=== PATIENT | female | born 1945 | race Hispanic/Latino ===

== ENCOUNTER → 2018-12-09 | Outpatient (CLI) | payer OTHER, MEDICARE ==
[~2018-12-09] MED LIST: ALPR-409 PO; LEVO75TA10 PO; MECL-129 PO; NAPR-1023 PO; OMEP40CA13 PO; SIMV-43 PO; TRAM50TA4 PO; TYL3 PO
== END | disposition home or self-care (01) ==
LOC: RAH 10:04
PROVIDERS: ATTEND Internal Medicine Gastroenterology
DX: K70.30 Alcoholic cirrhosis of liver without ascites (principal); N28.1 Cyst of kidney, acquired; Z90.49 Acquired absence of other specified parts of digestive tract
CPT/HCPCS: 76700

== ENCOUNTER → 2019-05-13 | Outpatient (CLI) | payer OTHER, MEDICARE ==
[~2019-05-13] MED LIST changes: +ALBUMIN (HUMAN) 25% 200 ML IV ONE
[2019-05-13 10:45] LABS: INR 1.59 (0.85-1.15); PARTIAL THROMBOPLASTIN TIME 43.3 SEC (26.3-35.5); PROTHROMBIN TIME 16.9 SEC (9.6-11.6)
--- NOTE | 2019-05-13 11:10 | NUR ---
U/S GD PARACENTESIS PROCEDURE PERFORMED BY DR. BRITTON. PUNCTURE SITE RIGHT UPPER QUADRANT OF ABDOMEN AND PATIENT TOLERATED PROCEDURE WELL. TOTAL REMOVED 4.4 LITERS OF CLOUDY YELLOW FLUID. END OF PROCEDURE AT 1140. CATHETER REMOVED AND DRESSING APPLIED. NO BLEEDING NOTED. ALBUMIN 25% 25 GRAMS GIVEN DURING PROCEDURE PER [facility]. RIGHT ANTECUBITAL PIV DC'D, BANDAID APPLIED, DRESSING DRY AND INTACT. DISCHARGE INSTRUCTIONS GIVEN TO PATIENT. PATIENT VERBALIZED UNDERSTANDING. PT DISCHARGED VIA AMBULATORY W/WALKER, STABLE, AAO X3 WITH NO C/O PAIN @ 1210. SPECIMEN SENT TO LAB.
[2019-05-13 12:56] LABS: SPECIMENTYPE,BODY FLUID ASCITES
[2019-05-13 12:57] LABS: APPEARANCE BODY FLUID CLEAR (CLEAR); BODY FLUID RBC 198 /cu. mm.; BODY FLUID WBC 162 /cu. mm.; COLOR,BODY FLUID YELLOW (LT YELLOW); TOTAL VOLUME,BODY FLUID 4400 mL
[2019-05-13 13:16] LABS: BF LYMPHOCYTE 27 %; BF MESOTHELIAL 66 %; BF MONOCYTE 6 %
== END ==
LOC: RAH 09:54
PROVIDERS: ATTEND Family Medicine
DX: R18.8 Other ascites (principal); K74.60 Unspecified cirrhosis of liver
CPT/HCPCS: 36415; 49083; 85610; 85730; 87071; 87205; 89051; A4215; P9046; 96365

== ENCOUNTER 2019-09-19 16:49 | Emergency (ER) | payer OTHER, MEDICARE ==
[~2019-09-19 16:49] MED LIST changes: -ALBUMIN (HUMAN) 25% 200 ML IV ONE
[2019-09-19] MEDS ORDERED: ASPIRIN 325 MG TABLET ONE (17:31)
[2019-09-19 17:36] LABS: BASOPHILS % (AUTO) 0.1 % (0.0-5.0); HEMATOCRIT 36.3 % (36-48); LYMPHOCYTES % (AUTO) 12.4 % (21.0-51.0); MEAN CORPUSCULAR HEMOGLOBIN 27.9 pg (27.0-33.0); MEAN CORPUSCULAR VOLUME 87.3 fL (79-99); MONOCYTES % (AUTO) 10.5 % (3.0-13.0); NEUTROPHILS % (AUTO) 76.5 % (40.0-77.0); PLATELET COUNT (AUTO) 86 K/uL (130-400); RED BLOOD CELL COUNT(AUTO) 4.16 MIL/uL (4.00-5.50); RED CELL DISTRIBUTION WIDTH 15.8 % (11.0-15.5); WHITE BLOOD COUNT (AUTO) 8.5 K/uL (4.8-10.8)
[2019-09-19 17:54] LABS: B-TYPE NATRIURETIC PEPTIDE 19 pg/mL (0-100)
[2019-09-19 17:58] LABS: CREATININE 1.3 mg/dL (0.5-1.5)
[2019-09-19 18:00] LABS: INR 1.26 (0.85-1.15); PARTIAL THROMBOPLASTIN TIME 33.6 SEC (26.3-35.5); PROTHROMBIN TIME 13.5 SEC (9.6-11.6)
[2019-09-19 18:02] LABS: ALBUMIN 2.6 g/dL (3.5-5.0); BILIRUBIN,TOTAL 1.7 mg/dL (0.2-1.0); TOTAL PROTEIN, SERUM 6.9 g/dL (6.0-8.3)
== END 2019-09-19 21:18 | disposition home or self-care (01) ==
LOC: EDH 16:49
DX: R07.89 Other chest pain (principal)
CPT/HCPCS: 36415; 71045; 80053; 82550; 83880; 84484; 85025; 85610; 85730; 93005

== ENCOUNTER → 2020-05-10 | Outpatient (CLI) | payer OTHER, MEDICARE ==
[~2020-05-10] MED LIST changes: +DICL1KIT20 TP; +DICY10CA13 PO; +LEVO50TA11 PO; +LEVO750T46 PO; -LEVO75TA10 PO; -NAPR-1023 PO; -TYL3 PO
== END | disposition home or self-care (01) ==
LOC: RAH 08:45
PROVIDERS: ATTEND Internal Medicine Gastroenterology
DX: K70.30 Alcoholic cirrhosis of liver without ascites (principal); N28.1 Cyst of kidney, acquired; R16.1 Splenomegaly, not elsewhere classified; Z90.49 Acquired absence of other specified parts of digestive tract
CPT/HCPCS: 76700; 93975

== ENCOUNTER → 2020-05-31 | Outpatient (CLI) | payer OTHER, MEDICARE ==
[~2020-05-31] MED LIST changes: +IOHEXOL-350 75 ML VIAL IV ONE
== END | disposition home or self-care (01) ==
LOC: RAH 08:36
PROVIDERS: ATTEND Internal Medicine Gastroenterology
DX: K74.60 Unspecified cirrhosis of liver (principal); R16.1 Splenomegaly, not elsewhere classified; R93.2 Abnormal findings on diagnostic imaging of liver and biliary tract; R77.2 Abnormality of alphafetoprotein; R18.8 Other ascites
CPT/HCPCS: 74170; Q9967

== ENCOUNTER 2020-11-06 08:51 | Day surgery (SDC) | payer OTHER, MEDICARE ==
[2020-11-06] VITALS (9 sets, daily range): BP systolic 100–118; BP diastolic 48–60
[~2020-11-06 08:51] MED LIST changes: -IOHEXOL-350 75 ML VIAL IV ONE; -OMEP40CA13 PO; +OMEP40CA21 PO
[2020-11-06 09:26] LABS: HEMATOCRIT 34.8 % (36-48); LYMPHOCYTES % (AUTO) 23.7 % (21.0-51.0); MEAN CORPUSCULAR HEMOGLOBIN 32.7 pg (27.0-33.0); MEAN CORPUSCULAR HGB CONC 32.8 g/dL (32.0-36.0); MEAN CORPUSCULAR VOLUME 99.7 fL (79-99); MONOCYTES % (AUTO) 12.7 % (3.0-13.0); NEUTROPHILS % (AUTO) 62.9 % (40.0-77.0); PLATELET COUNT (AUTO) 84 K/uL (130-400); RED BLOOD CELL COUNT(AUTO) 3.49 MIL/uL (4.00-5.50); RED CELL DISTRIBUTION WIDTH 15.9 % (11.0-15.5); WHITE BLOOD COUNT (AUTO) 2.9 K/uL (4.8-10.8)
[2020-11-06 09:39] LABS: INR 1.49 (0.85-1.15); PROTHROMBIN TIME 15.7 SEC (9.6-11.6)
[2020-11-06 09:40] LABS: PARTIAL THROMBOPLASTIN TIME 39.5 SEC (26.3-35.5)
[2020-11-06 09:58] LABS: LYMPHOCYTES % (MANUAL) 17 % (22-44); MAN.DIFF COMMENT-IMPRESSION MANUAL DIFFERENTIAL; MONOCYTES % (MANUAL) 8 % (2-9); SEGMENTED NEUTROPHILS % 75 % (40-70)
[2020-11-06 10:00] LABS: PLATELET MORPHOLOGY COMMENT DECREASED
[2020-11-06] MEDS ORDERED: 0.9%NACL 1000ML 1,000 ML IV ONE (10:39)
[2020-11-06] MEDS ORDERED: FENTANYL CITRATE PF 50 MCG/1 ML 2ML VIAL ONE (10:57)
[2020-11-06] MEDS ORDERED: MIDAZOLAM HCL 1 MG/ML 2ML VIAL ONE (10:57)
== END 2020-11-06 16:00 | disposition home or self-care (01) ==
LOC: DAH 08:51 → EDSTATUS 09:00 → DAH 16:00
PROVIDERS: ATTEND Internal Medicine Medical Oncology
DX: C22.0 Liver cell carcinoma (principal); Z20.822 Contact with and (suspected) exposure to COVID-19; K74.60 Unspecified cirrhosis of liver; D69.6 Thrombocytopenia, unspecified; R53.83 Other fatigue; Z79.01 Long term (current) use of anticoagulants
CPT/HCPCS: 36415; 47000; 76942; 85025; 85610; 85730; 88307; 88341; 88342; C2615; J2250; J3010; J7030; 99152; 99153

== ENCOUNTER 2020-11-19 17:48 | Emergency (ER) | payer OTHER, MEDICARE ==
[~2020-11-19] VITALS: Ht 157.5 cm; Wt 56.2 kg
[2020-11-19 18:36] LABS: BASOPHILS % (AUTO) 0.2 % (0.0-5.0); HEMATOCRIT 32.8 % (36-48); LYMPHOCYTES % (AUTO) 18.9 % (21.0-51.0); MEAN CORPUSCULAR HEMOGLOBIN 32.6 pg (27.0-33.0); MEAN CORPUSCULAR HGB CONC 32.9 g/dL (32.0-36.0); MEAN CORPUSCULAR VOLUME 99.1 fL (79-99); MONOCYTES % (AUTO) 12.4 % (3.0-13.0); NEUTROPHILS % (AUTO) 67.8 % (40.0-77.0); PLATELET COUNT (AUTO) 78 K/uL (130-400); RED BLOOD CELL COUNT(AUTO) 3.31 MIL/uL (4.00-5.50); RED CELL DISTRIBUTION WIDTH 16.1 % (11.0-15.5); WHITE BLOOD COUNT (AUTO) 4.3 K/uL (4.8-10.8)
[2020-11-19 18:37] LABS: APPEARANCE,URINE SL CLOUDY (CLEAR); BILIRUBIN,URINE MODERATE (NEGATIVE); COLOR,URINE ORANGE (YELLOW); GLUCOSE, URINE (UA) NEGATIVE (NEGATIVE); KETONES,URINE 5 mg/dL (NEGATIVE); LEUKOCYTE ESTERASE ,URINE NEGATIVE (NEGATIVE); NITRATE,URINE POSITIVE (NEGATIVE); OCCULT BLOOD,URINE NEGATIVE (NEGATIVE); PROTEIN,URINE NEGATIVE (NEGATIVE)
[2020-11-19 18:48] LABS: CREATININE 1.2 mg/dL (0.5-1.5); POTASSIUM 3.2 mmol/L (3.5-5.1)
[2020-11-19 18:51] LABS: ALBUMIN 2.2 g/dL (3.5-5.0); BILIRUBIN,TOTAL 5.4 mg/dL (0.2-1.0); TOTAL PROTEIN, SERUM 6.5 g/dL (6.0-8.3)
[2020-11-19 19:02] LABS: BACTERIA,URINE Few /HPF (None Seen); RBC,URINE 0-1 /HPF (0-1); SQUAMOUS EPITHELIAL CELL,UR Moderate /HPF (0-2)
[2020-11-19] MEDS ORDERED: CEFTRIAXONE 1G VIAL IVP STA (20:30)
[2020-11-19] MEDS ORDERED: CIPR-278 PO (20:44)
[2020-11-19 20:52] VITALS: BP 130/62
== END 2020-11-19 21:41 | disposition home or self-care (01) ==
LOC: EDH 17:48
DX: N39.0 Urinary tract infection, site not specified (principal); K70.31 Alcoholic cirrhosis of liver with ascites; F41.9 Anxiety disorder, unspecified; Z79.899 Other long term (current) drug therapy
CPT/HCPCS: 36415; 80053; 81001; 82140; 82150; 83690; 85025; 87088; 96374; 99283; J0696

== ENCOUNTER 2020-11-20 12:47 | Emergency (ER) | payer OTHER, MEDICARE ==
[~2020-11-20] VITALS: Ht 165.1 cm; Wt 56.2 kg
[~2020-11-20 12:47] MED LIST changes: +CIPR-278 PO
[2020-11-20 16:52] VITALS: BP 130/62
== END 2020-11-20 17:00 | disposition home or self-care (01) ==
LOC: EDH 12:47
DX: K70.31 Alcoholic cirrhosis of liver with ascites (principal); Z79.899 Other long term (current) drug therapy; Z88.8 Allergy status to other drugs, medicaments and biological substances
CPT/HCPCS: 99281

== ENCOUNTER → 2020-12-05 | Outpatient (CLI) | payer OTHER, MEDICARE ==
[~2020-12-05] MED LIST changes: +ALBUMIN (HUMAN) 25% 200 ML IV SCH
[2020-12-05 10:29] LABS: HEMATOCRIT 32.1 % (36-48); LYMPHOCYTES % (AUTO) 16.7 % (21.0-51.0); MEAN CORPUSCULAR HEMOGLOBIN 32.9 pg (27.0-33.0); MEAN CORPUSCULAR HGB CONC 32.7 g/dL (32.0-36.0); MEAN CORPUSCULAR VOLUME 100.6 fL (79-99); MONOCYTES % (AUTO) 9.6 % (3.0-13.0); NEUTROPHILS % (AUTO) 73.1 % (40.0-77.0); PLATELET COUNT (AUTO) 68 K/uL (130-400); RED BLOOD CELL COUNT(AUTO) 3.19 MIL/uL (4.00-5.50); RED CELL DISTRIBUTION WIDTH 16.3 % (11.0-15.5); WHITE BLOOD COUNT (AUTO) 3.1 K/uL (4.8-10.8)
[2020-12-05 10:40] LABS: INR 1.66 (0.85-1.15); PROTHROMBIN TIME 17.3 SEC (9.6-11.6)
[2020-12-05 10:48] LABS: ALBUMIN 2.1 g/dL (3.5-5.0); BILIRUBIN,TOTAL 4.8 mg/dL (0.2-1.0); CREATININE 1.2 mg/dL (0.5-1.5); POTASSIUM 3.2 mmol/L (3.5-5.1); TOTAL PROTEIN, SERUM 6.5 g/dL (6.0-8.3)
[2020-12-05 16:04] LABS: SPECIMENTYPE,BODY FLUID ASCITES
[2020-12-05 16:05] LABS: APPEARANCE BODY FLUID SLIGHTLY CLOUDY (CLEAR); BODY FLUID RBC 429 /cu. mm.; BODY FLUID WBC 77 /cu. mm.; COLOR,BODY FLUID YELLOW (LT YELLOW); TOTAL VOLUME,BODY FLUID 3800 mL
[2020-12-05 16:19] LABS: BF LYMPHOCYTE 59 %; BF MESOTHELIAL 25 %; BF MONOCYTE 1 %
== END | disposition home or self-care (01) ==
LOC: RAH 09:53
PROVIDERS: ATTEND Internal Medicine Gastroenterology
DX: K70.31 Alcoholic cirrhosis of liver with ascites (principal); F41.9 Anxiety disorder, unspecified; I10 Essential (primary) hypertension; E78.5 Hyperlipidemia, unspecified; E03.9 Hypothyroidism, unspecified; D64.9 Anemia, unspecified; Z79.01 Long term (current) use of anticoagulants
CPT/HCPCS: 36415; 49083; 80053; 85025; 85610; 87071; 87205; 88112; 88305; 89051; C1729; P9046